=== PATIENT | female | born 1955 | race Caucasian/White ===

== ENCOUNTER → 2018-05-16 | Outpatient (CLI) | payer MEDICARE, BC ==
--- NOTE | 2018-05-16 15:21 | PCVCIMAG ---
APPROVED REPORT Study performed: 05/16/2018 13:10:46 Exam: Stress Echocardiogram Indication: chest pain, dyspnea Patient Location: Echo lab Stress Nurse: Kimmy Jackson RN, Nakia Jorge RN Status: routine Ht: 5 ft 0 in HR: 74 bpm BP: 110/70 mmHg Rhythm: NSR Procedure The patient underwent an Exercise Stress Test using the Brett Protocol. Blood pressure, heart rate, and EKG were monitored. An Echocardiogram was performed by test lab technician in four stages in quad fashion. At peak stress, four selected images were obtained and placed side by side with resting images for comparison. Stress Test Details Stress Test: Exercise stress testing was performed using a Brett protocol. HR Resting HR: 74 bpmMax Heart Rate (APMHR): 157 bpm Max HR Achieved: 155 bpmTarget HR (85% APMHR): 133 bpm % of APMHR: 98 HR response to stress: Normal HR response to stress BP Resting BP: 110/70 mmHg Max BP: 136/64 mmHg ECG Resting ECG: Sinus Rhythm Stress ECG: Sinus Rhythm ST Change: Horizontal ST depression Maximum ST Deviation: 0.3 mm Arrhythmia: None Recovery ECG: Sinus Rhythm Recovery ST Change: Horizontal ST depression Recovery ST Deviation: 0.3 mm Recovery Arrhythmia: None Clinical Reason for Termination: Maximal effort Exercise duration: 6 min 40 sec Highest Stage Achieved: Stage 2: 2.5 mph at 12% grade. Exercise capacity: 9.00 METs Overall Exercise Capacity for Age: Poor Angina Score: None Stress ECG Conclusion Clinical: Non-ischemic ECG: Non-ischemic Nino Treadmill Score is 4.5 which is Moderate risk. Pre-Stress Echo The resting Echocardiogram showed normal left ventricular contractility with an estimated Ejection Fraction of about 55-60%. Normal wall motion in all segments on baseline images. Post-Stress Echo The stress Echocardiogram showed normal left ventricular contractility with an estimated Ejection Fraction of about 60-65%. Normal augmentation of wall motion in all segments on post stress images. Clinical No clinical or ECG evidence for ischemia. Conclusion Clinical Response: Non-ischemic Exercise Capacity: Below Average Stress ECG Response: Equivocal Stress Echo Images: Non-ischemic The left ventricle is normal in size and wall thickness in both the rest and stress images. Normal stress echocardiogram with maximal exercise stress. Other Information Study Quality: Good <Conclusion> The left ventricle is normal in size and wall thickness in both the rest and stress images. Normal stress echocardiogram with maximal exercise stress.
== END | disposition home or self-care (01) ==
LOC: PCVCIMAG 16:14
PROVIDERS: ATTEND Internal Medicine
DX: R06.09 Other forms of dyspnea (principal); R07.9 Chest pain, unspecified; B19.20 Unspecified viral hepatitis C without hepatic coma
CPT/HCPCS: 93325; 93351